=== PATIENT | male | born 1950 | race Caucasian/White ===

== ENCOUNTER 2016-10-23 05:38 | Inpatient (IN) | payer MEDICARE ==
[2016-10-23] VITALS (8 sets, daily range): BP systolic 111–177; BP diastolic 51–87; PULSE 61–88; RESP 18–20; TEMP 96.3–98.4; O2SAT 95–98
[~2016-10-23] VITALS: Ht 177.8 cm; Wt 96.0 kg
[~2016-10-23 05:38] MED LIST: ASPI81 PO; BIOT10004 PO; CYCL-36 PO; DESO0.0560 TOP; GABA300C3 PO; GLUC750T22 PO; HYDR-2768 PO; HYDR-3129 PO; LOSA50TA PO; LOVA40TA PO; METO50TA PO; MULT-65 PO; OMEP40CA2 PO; PERC5TAB12 PO; POTA-243 PO; TAMS0.4C67 PO; VITA20002 PO; VITA50TA10 PO
[2016-10-23] MEDS ORDERED: D200CAP PO (05:53)
[2016-10-23] MEDS ORDERED: BIOT1SUB SL (05:53)
[2016-10-23] MEDS ORDERED: ASPI1TAB69 PO (05:53)
[2016-10-23] MEDS ORDERED: VITA100021 SL (05:57)
[2016-10-23] MEDS ORDERED: GLUC750C PO (05:57)
[2016-10-23] MEDS ORDERED: GABA300C5 PO (05:57)
[2016-10-23] MEDS ORDERED: CYCL1TAB29 PO (05:57)
[2016-10-23] MEDS ORDERED: HYDR25TA5 PO (05:59)
[2016-10-23] MEDS ORDERED: LOSA50TA PO (05:59)
[2016-10-23] MEDS ORDERED: MORPHINE SULFATE 4 MG/ML INJ IV PUSH ONE ×2 (06:00→07:00)
[2016-10-23] MEDS ORDERED: SODIUM CHLORIDE 0.9% FLUSH 5 ML FLUSH IVF PRN (06:00)
[2016-10-23] MEDS ORDERED: NITROGLYCERIN 0.4 MG SL 25 TABS/BTL SL ONE (06:00)
[2016-10-23] MEDS ORDERED: ONDANSETRON HCL 4 MG/2 ML VIAL IV PUSH ONE (06:00)
[2016-10-23] MEDS ORDERED: SODIUM CHLORID 0.9% 500 ML INJ 500 ML IV ONE (06:00)
[2016-10-23] MEDS ORDERED: POTA10CA PO (06:02)
[2016-10-23] MEDS ORDERED: TAMS5CAP PO (06:02)
[2016-10-23] MEDS ORDERED: METO50TA PO (06:02)
[2016-10-23] MEDS ORDERED: PROT40TA PO (06:02)
[2016-10-23] MEDS ORDERED: LOVA40TA PO (06:02)
[2016-10-23 06:13] LABS: AUTOMATED NEUTROPHIL # 3.6 TH/MM3 (1.8-7.7); BASOPHIL % 0.7 % (0.0-2.0); EOSINOPHIL # 0.1 TH/MM3 (0-0.4); HEMATOCRIT 34.5 % (39.0-51.0); HEMO FLAGS DIFF FINAL; LYMPH % 32.9 % (9.0-44.0); LYMPHOCYTE # 2.1 TH/MM3 (1.0-4.8); MEAN CELL VOLUME 95.2 FL (80.0-100.0); MEAN CORPUSCULAR HEMOGLOBIN 32.6 PG (27.0-34.0); MEAN CORPUSCULAR HGB CONC 34.3 % (32.0-36.0); MONO % 8.4 % (0.0-8.0); PLATELET COUNT 177 TH/MM3 (150-450); RED BLOOD COUNT 3.62 MIL/MM3 (4.50-5.90); RED CELL DISTRIBUTION WIDTH 13.9 % (11.6-17.2); WHITE BLOOD COUNT 6.4 TH/MM3 (4.0-11.0)
--- NOTE | 2016-10-23 06:15 | PD ---
HPI Chief Complaint: Chest Pain Time Seen by Provider: 05:48 Travel History International Travel<30 days: No Contact w/Intl Traveler<30days: No Traveled to known affect area: No History of Present Illness HPI The patient is a 66-year-old male who presents to the emergency department for epigastric/chest pain. The patient states his symptoms started approximately 2 AM while he was sleeping. The patient states the pain awakened him. The pain is located in epigastrium and lower chest area, nonradiating, intermittent, and sharp. The patient states the pain will last for 15-20 minutes and then resolved. The patient states the pain is slightly improved with standing upright and leaning against a table and worse with lying supine. The patient does have a history of coronary artery disease with previous stent [place] [address] Jones. 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 Cyril Ingram. Patient does have a history of hypertension, hyperlipidemia, and coronary artery disease. He denies any current tobacco use or history of diabetes. The patient also has a history of Ingram's esophagus and hiatal hernia, but denies any known history of peptic ulcer disease or chronic gastritis. He denies any previous history of pancreatitis or biliary colic. The patient does complain of mild nausea associated with this chest pain as well as shortness of breath, but denies any vomiting or diaphoresis. PFSH Past Medical History Blood Disorders: No Heart Rhythm Problems: No Cancer: Yes (skin cancer basal,squamous) Cardiac Catheterization: Yes (stent) Cardiovascular Problems: Yes High Cholesterol: Yes Chemotherapy: No Congestive Heart Failure: No Diabetes: No Diminished Hearing: No Endocrine: No Gastrointestinal Disorders: Yes (ACID REFLUX/BARRETTS ESOPHAGUS) Glaucoma: No Genitourinary: Yes Hepatitis: No Hiatal Hernia: Yes Hypertension: Yes Immune Disorder: No Implanted Vascular Access Dvce: Yes Kidney Stones: Yes Medical other: Yes (arthritis,reflux,backproblems) Musculoskeletal: Yes (DEGENERATIVE DISEASE) Neurologic: Yes (BACK/NECK PAIN) Psychiatric: No Reproductive: No Respiratory: Yes (SOB) Immunizations Current: Yes Myocardial Infarction: Yes Radiation Therapy: No Thyroid Disease: No Tetanus Vaccination: < 5 Years Influenza Vaccination: Yes Past Surgical History Abdominal Aneurysm Repair: Yes (aortic bypass) Abdominal Surgery: No AICD: No Body Medical Devices: CARDIAC STENTS Cardiac Surgery: Yes (CARDIAC STENT; AORTIC BY-PASS ; ANGIOPLASTY) Coronary Artery Bypass Graft: Yes (aortic bypass) Coronary Stent: Yes Ear Surgery: No Endocrine Surgery: No Eye Surgery: No Genitourinary Surgery: Yes (KIDNEY STONE ) Gynecologic Surgery: No Joint Replacement: No Oral Surgery: Yes (t and a) Thoracic Surgery: No Tonsillectomy: Yes Other Surgery: Yes (skin cancer removed) Family History Family Myocardial Infarction: Yes Social History Alcohol Use: Yes Tobacco Use: No Substance Use: No Allergies-Medications (Allergen,Severity, Reaction): Coded Allergies: Duloxetine HCl (Verified Allergy, Severe, rash, diarrhea, 10/23/16) Reported Meds & Prescriptions Reported Meds & Active Scripts Active Reported Potassium Chloride ER (Potassium Chloride) 10 Meq Cap 10 Meq PO DAILY Flomax (Tamsulosin HCl) 0.4 Mg Cap 0.4 Mg PO HS Protonix (Pantoprazole Sodium) 40 Mg Tab 40 Mg PO DAILY Metoprolol Tartrate 50 Mg Tab 50 Mg PO BID Lovastatin 40 Mg Tab 40 Mg PO DAILY Losartan (Losartan Potassium) 50 Mg Tab 50 Mg PO DAILY Hydrochlorothiazide 25 Mg Tab 25 Mg PO BID Glucosamine (Glucosamine Sulfate) 750 Mg Cap 750 Mg PO DAILY Gabapentin 300 Mg Cap 300 Mg PO BID Flexeril (Cyclobenzaprine HCl) 10 Mg Tab 10 Mg PO TID Vitamin B-12 (Cyanocobalamin) 1,000 Mcg Subl 1,000 Mcg SL DAILY D2000 Ultra Strength (Cholecalciferol) 2,000 Unit Cap 2,000 Units PO DAILY Biotin 5,000 Mcg Subl 5,000 Mcg SL Aspirin 81 Mg Tabdr 81 Mg PO DAILY Review of Systems Except as stated in HPI: all other systems reviewed are Neg HENT: No: Lightheadedness Cardiovascular: Positive: Chest Pain or Discomfort Respiratory: Positive: Shortness of Breath Gastrointestinal: Positive: Nausea, Abdominal Pain, No: Vomiting Musculoskeletal: No: Weakness, Edema Neurologic: No: Dizziness Physical Exam Narrative GENERAL: Awake, alert, pleasant 66-year-old male who appears his stated age and is in no acute respiratory distress. SKIN: Warm and dry. HEAD: Atraumatic. Normocephalic. EYES: No injection or drainage. ENT: No nasal bleeding or discharge. Mucous membranes pink and moist. NECK: Trachea midline. No JVD. CARDIOVASCULAR: Regular rate and rhythm. No murmur appreciated. RESPIRATORY: No accessory muscle use. Clear to auscultation. Breath sounds equal bilaterally. GASTROINTESTINAL: Abdomen soft, palpation epigastrium minimally reproduces symptoms. Well-healed midline surgical scar. MUSCULOSKELETAL: No obvious deformities. No clubbing. No cyanosis. No edema. NEUROLOGICAL: Awake and alert. No obvious cranial nerve deficits. Motor grossly within normal limits. Normal speech. PSYCHIATRIC: Appropriate mood and affect; insight and judgment normal. Data Data Last Documented VS Vital Signs Date Time Temp Pulse Resp B/P Pulse Ox O2 Delivery O2 Flow Rate FiO2 10/23/16 06:17 20 10/23/16 06:03 98 Nasal Cannula 2 10/23/16 06:02 73 157/78 150/83 10/23/16 05:43 98.0 Orders Electrocardiogram (10/23/16 05:56) Ckmb (Isoenzyme) Profile (10/23/16 05:56) Complete Blood Count With Diff (10/23/16 05:56) Comprehensive Metabolic Panel (10/23/16 05:56) Magnesium (Mg) (10/23/16 05:56) Prothrombin Time / Inr (Pt) (10/23/16 05:56) Act Partial Throm Time (Ptt) (10/23/16 05:56) Troponin I (10/23/16 05:56) Lipase (10/23/16 05:56) Chest, Single Ap (10/23/16 05:56) Ecg Monitoring (10/23/16 05:56) Bilateral Bp Monitoring (10/23/16 05:56) Iv Access Insert/Monitor (10/23/16 05:56) Oximetry (10/23/16 05:56) Oxygen Administration (10/23/16 05:56) Morphine Inj (Morphine Inj) (10/23/16 06:00) Sodium Chloride 0.9% Flush (Ns Flush) (10/23/16 06:00) Nitroglycerin Sl (Nitrostat Sl) (10/23/16 06:00) Sodium Chlorid 0.9% 500 Ml Inj (Ns 500 M (10/23/16 06:00) Ondansetron Inj (Zofran Inj) (10/23/16 06:00) CKMB (10/23/16 06:05) CKMB% (10/23/16 06:05) Us Abdomen Gallbladder (10/23/16 ) Morphine Inj (Morphine Inj) (10/23/16 07:00) Admit Order (Ed Use Only) (10/23/16 06:52) Labs Laboratory Tests Test 10/23/16 06:05 White Blood Count 6.4 TH/MM3 Red Blood Count 3.62 MIL/MM3 Hemoglobin 11.8 GM/DL Hematocrit 34.5 % Mean Corpuscular Volume 95.2 FL Mean Corpuscular Hemoglobin 32.6 PG Mean Corpuscular Hemoglobin 34.3 % Concent Red Cell Distribution Width 13.9 % Platelet Count 177 TH/MM3 Mean Platelet Volume 7.9 FL Neutrophils (%) (Auto) 57.0 % Lymphocytes (%) (Auto) 32.9 % Monocytes (%) (Auto) 8.4 % Eosinophils (%) (Auto) 1.0 % Basophils (%) (Auto) 0.7 % Neutrophils # (Auto) 3.6 TH/MM3 Lymphocytes # (Auto) 2.1 TH/MM3 Monocytes # (Auto) 0.5 TH/MM3 Eosinophils # (Auto) 0.1 TH/MM3 Basophils # (Auto) 0.0 TH/MM3 CBC Comment DIFF FINAL Differential Comment Prothrombin Time 10.9 SEC Prothromb Time International 1.0 RATIO Ratio Activated Partial 25.6 SEC Thromboplast Time Sodium Level 139 MEQ/L Potassium Level 4.0 MEQ/L Chloride Level 101 MEQ/L Carbon Dioxide Level 28.1 MEQ/L Anion Gap 10 MEQ/L Blood Urea Nitrogen 28 MG/DL Creatinine 2.24 MG/DL Random Glucose 102 MG/DL Calcium Level 9.0 MG/DL Magnesium Level 1.4 MG/DL Total Bilirubin 0.3 MG/DL Aspartate Amino Transf 13 U/L (AST/SGOT) Alanine Aminotransferase 19 U/L (ALT/SGPT) Alkaline Phosphatase 88 U/L Total Creatine Kinase 307 U/L Creatine Kinase MB 2.8 NG/ML Troponin I LESS THAN 0.02 NG/ML Total Protein 7.4 GM/DL Albumin 3.6 GM/DL Lipase 6228 U/L [facility] Medical Decision Making Medical Screen Exam Complete: Yes Emergency Medical Condition: Yes Medical Record Reviewed: Yes Interpretation(s) EKG reveals normal sinus rhythm with a rate of 75. RSR prime in V1 with QRS of 131 ms consistent with right bundle branch block. Appears new compared to EKG performed on September 03, 2014. Laboratory Tests Test 10/23/16 06:05 White Blood Count 6.4 TH/MM3 Red Blood Count 3.62 MIL/MM3 Hemoglobin 11.8 GM/DL Hematocrit 34.5 % Mean Corpuscular Volume 95.2 FL Mean Corpuscular Hemoglobin 32.6 PG Mean Corpuscular Hemoglobin 34.3 % Concent Red Cell Distribution Width 13.9 % Platelet Count 177 TH/MM3 Mean Platelet Volume 7.9 FL Neutrophils (%) (Auto) 57.0 % Lymphocytes (%) (Auto) 32.9 % Monocytes (%) (Auto) 8.4 % Eosinophils (%) (Auto) 1.0 % Basophils (%) (Auto) 0.7 % Neutrophils # (Auto) 3.6 TH/MM3 Lymphocytes # (Auto) 2.1 TH/MM3 Monocytes # (Auto) 0.5 TH/MM3 Eosinophils # (Auto) 0.1 TH/MM3 Basophils # (Auto) 0.0 TH/MM3 CBC Comment DIFF FINAL Differential Comment Prothrombin Time 10.9 SEC Prothromb Time International 1.0 RATIO Ratio Activated Partial 25.6 SEC Thromboplast Time Sodium Level 139 MEQ/L Potassium Level 4.0 MEQ/L Chloride Level 101 MEQ/L Carbon Dioxide Level 28.1 MEQ/L Anion Gap 10 MEQ/L Blood Urea Nitrogen 28 MG/DL Creatinine 2.24 MG/DL Random Glucose 102 MG/DL Calcium Level 9.0 MG/DL Magnesium Level 1.4 MG/DL Total Bilirubin 0.3 MG/DL Aspartate Amino Transf 13 U/L (AST/SGOT) Alanine Aminotransferase 19 U/L (ALT/SGPT) Alkaline Phosphatase 88 U/L Total Creatine Kinase 307 U/L Troponin I LESS THAN 0.02 NG/ML Total Protein 7.4 GM/DL Albumin 3.6 GM/DL Lipase 6228 U/L Differential Diagnosis Differential diagnosis includes acute coronary syndrome, gastritis, peptic ulcer disease, pancreatitis, biliary colic, esophageal spasm. Narrative Course IV was established, labs were drawn and sent, and the patient was placed on cardiac telemetry monitoring and continuous pulse oximetry monitoring. EKG was ordered and interpreted. Chest x-ray was ordered. The patient took 2 full size aspirin prior to arrival. The patient was administered nitroglycerin sublingual, morphine, Zofran, and IV fluids. The patient's troponin is less than 0.02. Chest x-ray reveals no acute disease. The patient's lipase was elevated at 6228. The patient denies any known history of gallstones, but does have approximately 2 drinks per night. The patient's pain was reassessed at 6: 45 AM, was down to 5/10, therefore, the patient was redosed with morphine intravenously. The patient has acute pancreatitis, ultrasound of the gallbladder will be ordered to evaluate for choledocholithiasis, however, his elevated lipase/pancreatitis may be secondary to alcohol use. Patient has for health care, therefore, the on-call [facility] physician was paged for admission. Physician Communication Physician Communication The on-call [facility] physician was paged for admission. I discussed the patient with Dr. Pina who agrees with admission. Diagnosis Primary Impression: Pancreatitis Qualified Code: K85.90 - Acute pancreatitis, unspecified complication status, unspecified pancreatitis type Admitting Information Admitting Physician Requests: Admit Condition: Stable Gonzalo Stephenson MD Oct 23, 2016 06:15
[2016-10-23 06:25] LABS: APTT (PATIENT) 25.6 SEC (24.3-30.1); PROTHROMBIN TIME - PATIENT 10.9 SEC (9.8-11.6)
--- NOTE | 2016-10-23 06:36 | RADRPT ---
EXAM DATE/TIME: 10/23/2016 06:28 [facility] COMPARISON: CHEST SINGLE AP, September 03, 2014, 14:01. INDICATIONS : Chest pain. MEDICAL HISTORY : None. SURGICAL HISTORY : Aortic bypass. Cardiac stent. ENCOUNTER: Initial ACUITY: 1 day PAIN SCORE: 9/10 LOCATION: chest FINDINGS: A single view of the chest demonstrates the lungs to be symmetrically aerated without evidence of mas s, infiltrate or effusion. The cardiomediastinal contours are unremarkable. Osseous structures are intact. CONCLUSION: No acute disease. Jose Caldwell MD on October 23, 2016 at 6:34 Board Certified Radiologist. This report was verified electronically.
[2016-10-23 06:38] LABS: ALT (GPT) 19 U/L (12-78); ANION GAP 10 MEQ/L (5-15); AST (GOT) 13 U/L (15-37); BICARBONATE 28.1 MEQ/L (21.0-32.0); BLOOD UREA NITROGEN 28 MG/DL (7-18); CHLORIDE 101 MEQ/L (98-107); MAGNESIUM 1.4 MG/DL (1.5-2.5); SODIUM (NA) 139 MEQ/L (136-145)
[2016-10-23 06:41] LABS: ALKALINE PHOSPHATASE 88 U/L (45-117); CREATINE KINASE 307 U/L (39-308); TOTAL BILIRUBIN ADULT 0.3 MG/DL (0.2-1.0)
[2016-10-23 06:54] LABS: CKMB 2.8 NG/ML (0.5-3.6)
[2016-10-23] MEDS ORDERED: MORPHINE SULFATE 4 MG/ML INJ IV PUSH PRN (07:45)
[2016-10-23] MEDS: SODIUM CHLOR 0.9% 1000 ML INJ 1,000 ML IV SCH ×3 (07:45→19:30)
[2016-10-23] MEDS ORDERED: ONDANSETRON HCL 4 MG/2 ML VIAL IV PRN (08:45)
[2016-10-23] MEDS ORDERED: ACETAMINOPHEN 325 MG TAB PO PRN (08:45)
--- NOTE | 2016-10-23 09:07 | HHI.HP ---
HPI Service [facility] Hospitalists Primary Care Physician Theodore Manzano MD Admission Diagnosis acute pancreatitis Travel History International Travel<30 Days: No Contact w/Intl Traveler <30 Da: No Traveled to Known Affected Are: No History of Present Illness Mr. Castro is a 66 y/o WM with HTN, hyperlipidemia, hx of CAD/[place] and regular alcohol use. He presented to the ED at [facility] on 10/23/16 with complaints of sudden onset of epigastric/lower sternal chest pain that began at approximately 2AM which awakened him for sleep. The pain is located in epigastrium/lower sternal chest area, nonradiating, constant, and sharp. It lasted about 3 hours and resolved after arrival to the ER and was given Morphine. He states the pain was slightly improved with standing upright and leaning against a table and worse with lying supine. The patient reported some mild nausea associated with this pain as well as shortness of breath, but denies any vomiting or diaphoresis. Labs at admission noted an elevated Lipase of 6228. His LFTs are stable. Abd US is pending. Pt admits to drinking 2-3 alcoholic beverages every evening. He denies an hx of gallstones or liver issues. He denies any recent illnesses or medication changes. He denies any previous history of pancreatitis. Review of Systems Constitutional: DENIES: Fever, Chills Respiratory: DENIES: Cough, Shortness of breath Cardiovascular: COMPLAINS OF: Chest pain, DENIES: Palpitations, Dyspnea on Exertion, Lower Extremity Edema Gastrointestinal: COMPLAINS OF: Abdominal pain, Nausea, DENIES: Vomiting Past Family Social History Past Medical History CAD with hx of [place] Hx of TIA PVD Chronic back pain B12 deficiency HTN Hyperlipidemia CKD stage 3 Ingram's esophagus Past Surgical History PTCA with stent placement x 2 in 2004 Lithotripsy Tonsillectomy Reported Medications Potassium Chloride ER (Potassium Chloride) 10 Meq Cap 10 Meq PO DAILY Flomax (Tamsulosin HCl) 0.4 Mg Cap 0.4 Mg PO HS Protonix (Pantoprazole Sodium) 40 Mg Tab 40 Mg PO DAILY Metoprolol Tartrate 50 Mg Tab 50 Mg PO BID Lovastatin 40 Mg Tab 80 Mg PO DAILY Losartan (Losartan Potassium) 50 Mg Tab 100 Mg PO DAILY Hydrochlorothiazide 25 Mg Tab 25 Mg PO DAILY Glucosamine (Glucosamine Sulfate) 750 Mg Cap 750 Mg PO DAILY Gabapentin 300 Mg Cap 300 Mg PO BID Flexeril (Cyclobenzaprine HCl) 10 Mg Tab 10 Mg PO TID Vitamin B-12 (Cyanocobalamin) 1,000 Mcg Subl 1,000 Mcg SL DAILY D2000 Ultra Strength (Cholecalciferol) 2,000 Unit Cap 2,000 Units PO DAILY Biotin 5,000 Mcg Subl 5,000 Mcg SL Aspirin 81 Mg Tabdr 81 Mg PO DAILY Allergies: Coded Allergies: Duloxetine HCl (Verified Allergy, Severe, rash, diarrhea, 10/23/16) Family History Mother with hx of breast cancer Father with hx of HTN Social History (+)Alcohol use, 2 drinks per night Hx of tobacco use, 1ppd x 30 years, quit in 2003 Denies any illicit drug use Physical Exam Vital Signs Vital Signs Date Time Temp Pulse Resp B/P Pulse Ox O2 Delivery O2 Flow Rate FiO2 10/23/16 06:17 20 10/23/16 06:17 20 10/23/16 06:04 20 10/23/16 06:03 98 Nasal Cannula 2 10/23/16 06:02 73 20 157/78 98 Room Air 150/83 10/23/16 05:43 98.0 75 20 177/87 98 10/23/16 05:40 98.4 88 18 175/83 95 Room Air Physical Exam GENERAL: This is a well-nourished, well-developed patient, in no apparent distress. HEENT: Atraumatic. Normocephalic. No temporal or scalp tenderness. No scleral icterus. Airway patent. NECK: Trachea midline, supple, nontender. CARDIO: Regular. RESP: CTA bilaterally. No wheezes, rales, or rhonchi. ABD: +BS, soft, non-tender, nondistended. EXT: Extremities without clubbing, cyanosis, or edema. NEURO: Awake and alert. Motor and sensory grossly within normal limits. Normal speech. Laboratory Laboratory Tests Test 10/23/16 06:05 White Blood Count 6.4 Red Blood Count 3.62 Hemoglobin 11.8 Hematocrit 34.5 Mean Corpuscular Volume 95.2 Mean Corpuscular Hemoglobin 32.6 Mean Corpuscular Hemoglobin 34.3 Concent Red Cell Distribution Width 13.9 Platelet Count 177 Mean Platelet Volume 7.9 Neutrophils (%) (Auto) 57.0 Lymphocytes (%) (Auto) 32.9 Monocytes (%) (Auto) 8.4 Eosinophils (%) (Auto) 1.0 Basophils (%) (Auto) 0.7 Neutrophils # (Auto) 3.6 Lymphocytes # (Auto) 2.1 Monocytes # (Auto) 0.5 Eosinophils # (Auto) 0.1 Basophils # (Auto) 0.0 CBC Comment DIFF FINAL Differential Comment Prothrombin Time 10.9 Prothromb Time International 1.0 Ratio Activated Partial 25.6 Thromboplast Time Sodium Level 139 Potassium Level 4.0 Chloride Level 101 Carbon Dioxide Level 28.1 Anion Gap 10 Blood Urea Nitrogen 28 Creatinine 2.24 Random Glucose 102 Calcium Level 9.0 Magnesium Level 1.4 Total Bilirubin 0.3 Aspartate Amino Transf 13 (AST/SGOT) Alanine Aminotransferase 19 (ALT/SGPT) Alkaline Phosphatase 88 Total Creatine Kinase 307 Creatine Kinase MB 2.8 Troponin I LESS THAN 0.02 Total Protein 7.4 Albumin 3.6 Lipase 6228 Result Diagram: 10/23/16 0605 10/23/16 0605 Imaging Last Impressions Chest X-Ray 10/23/16 0556 Signed Impressions: Service Date/Time: Sunday, October 23, 2016 06:28 - CONCLUSION: No acute disease. Jose Caldwell MD Septic Shock Reassessment Heart: Regular rate and rhythm Lungs: Clear Skin: Warm Peripheral Pulses: Bounding Right Radial Bounding Left Radial Bounding Right Popliteal Bounding Left Popliteal Bounding Right Dorsalis Pedis Bounding Left Dorsalis Pedis Bounding Right Posterior Tibial Bounding Left Posterior Tibial Capillary Refill: <2 seconds Assessment and Plan Problem List: (1) Pancreatitis Status: Acute Plan: - Pt admitted with acute onset of epigastric pain, nausea and some SOB - Lipase at admission was elevated at 6228. Likely alcoholic pancreatitis. Pt drinks 2-3 alcoholic beverages per day. - Abdominal US is pending. - LFTs are WNL - IVF - Pain control PRN - Check lipids - Withdrawal precautions. - Supportive care - DVT prophylaxis (2) Acute renal failure superimposed on stage 3 chronic kidney disease Status: Acute Plan: - Labs slightly worse than baseline. - Review of previous outpt labs noted Cr 1.48, BUN 19, and GFR 49 in 01/2016 - IVF - Monitor labs (3) Hypertension Status: Chronic Plan: - Cont. Metoprolol - Hold Losartan and HCTZ at this time. BP is low normal and renal function is increased. - IVF - Monitor vitals (4) Hyperlipidemia Status: Chronic Plan: - Cont. home meds - Check lipid panel (5) GERD (gastroesophageal reflux disease) Status: Chronic Plan: - Cont. PPI Assessment and Plan Patient examined. Assessment and plan formulated with Lyndsay Corea PA-C. I agree with the above. etoh pancreatitis. 2-3 vodka per day pt admits to tremors with no etoh. right kidney mass noted..pt says he was aware and follows with dr Camp. will give him copy of u/s on d/c to take back to urology. ckd 3 noted ivf. npo. pain meds. labs in AM. Physician Certification 2 Midnight Certification Type: Admission for Inpatient Services Order for Inpatient Services The services are ordered in accordance with Medicare regulations or non- Medicare payer requirements, as applicable. In the case of services not specified as inpatient-only, they are appropriately provided as inpatient services in accordance with the 2-midnight benchmark. Estimated LOS (days): 3 3 days is the estimated time the patient will need to remain in the hospital, assuming treatment plan goals are met and no additional complications. Post-Hospital Plan: Not yet determined Problem Qualifiers (1) Pancreatitis: Qualified Code: K85.90 - Acute pancreatitis, unspecified complication status, unspecified pancreatitis type Lyndsay Corea Oct 23, 2016 09:07 Bro Pina MD Oct 23, 2016 15:16
--- NOTE | 2016-10-23 09:23 | RADRPT ---
EXAM DATE/TIME: 10/23/2016 08:07 [facility] COMPARISON: CT ABDOMEN & PELVIS W/O CONTRAST, April 28, 2015, 13:06. INDICATIONS : Right upper quadrant pain. MEDICAL HISTORY : Myocardial infarction. Hypercholesterolemia. Gastroesophageal reflux disease. Transient ischemic clemente ck. Neck/back pain. Coronary artery disease. Peripheral vascular disease. Hyperlipidemia. Hypertensio n. Emphysema. Ingram's esophagus. hiatal hernia. renal cyst. renal calculi. skin cancer. measles. ar thritis. SURGICAL HISTORY : Abdominal aortic aneurysm repair. Tonsillectomy. CABG. Skin cancer removal. Coronary artery stent. ENCOUNTER: Initial ACUITY: 1 day PAIN SCORE: 3/10 LOCATION: Right upper quadrant MEASUREMENTS: LIVER: 14.8 cm length COMMON DUCT: 4 mm RIGHT KIDNEY: 9.0 x 5.2 x 5.0 cm FINDINGS: LIVER: Normal echotexture without focal lesion or ductal dilatation. The portal system is patent. There is a cyst in the right lobe measuring 3.0 cm. There is a cyst in the left lobe measuring 1.8 cm. No evide nce of ascites. COMMON DUCT: No intraluminal mass or stone visualized. GALLBLADDER: Contains no stones, demonstrates no wall thickening or pericholecystic fluid. PANCREAS: Not visualized RIGHT KIDNEY: No evidence of hydronephrosis. There appears to be a mass along the mid pole of the right kidney diony uring 3.2 x 2.8 cm. There is vascularity associated with the mass. CONCLUSION: 1. There is a solid vascular mass along the midpole the right kidney measuring 3.2 x 2.[address] Renal ce ll carcinoma is the primary consideration. Recommend a CT scan with IV contrast for further evaluatio n. This could be performed on a nonemergent outpatient basis. 2. Hepatic cysts. These were present on patient's prior CT scan. 3. No evidence of gallstones or biliary tract obstruction. 4. Pancreas not visualized. Nirmal Lund MD on October 23, 2016 at 9:17 Board Certified Radiologist. This report was verified electronically.
[2016-10-23] MEDS: PANTOPRAZOLE SOD 40 MG DELAYED RELEASE TAB PO SCH (09:45)
[2016-10-23] MEDS: ASPIRIN EC 81 MG TABEC PO SCH (09:45)
[2016-10-23] MEDS: METOPROLOL TARTRATE 50 MG TAB PO SCH ×2 (09:46→19:29)
[2016-10-23] MEDS: MORPHINE SULFATE 4 MG/ML INJ IV PUSH PRN ×2 (13:06→16:46)
[2016-10-23] MEDS ORDERED: LORazepam 2 MG/ML VIAL IV PUSH PRN (15:00)
[2016-10-23] MEDS: chlordiazePOXIDE 25 MG CAP PO SCH (16:40)
--- NOTE | 2016-10-23 16:57 | EKG ---
Date Performed: 10/23/2016 Time Performed: 05:48:32 PTAGE: 66 years EKG: Sinus rhythm RIGHT BUNDLE BRANCH BLOCK ABNORMAL ECG PREVIOUS TRACING : 09/03/2014 20.00.50 Compared to previous tracing, the patient has a new righ t bundle branch block. DOCTOR: Naila Owen Interpretating Date/Time 10/23/2016 16:56:00
[2016-10-23] MEDS: TAMSULOSIN HCL 0.4 MG CAP PO SCH (19:29)
[2016-10-23] MEDS ORDERED: PILL SPLITTER OTHER PRN (21:15)
[2016-10-23] MEDS: MELATONIN 5 MG TAB PO SCH (22:07)
[2016-10-24] VITALS: BP 116/66; PULSE 68; RESP 20; TEMP 98; O2SAT 97
[2016-10-24 04:52] LABS: AUTOMATED NEUTROPHIL # 2.8 TH/MM3 (1.8-7.7); BASOPHIL % 0.4 % (0.0-2.0); EOSINOPHIL # 0.1 TH/MM3 (0-0.4); EOSINOPHIL % 1.1 % (0.0-4.0); HEMATOCRIT 29.3 % (39.0-51.0); HEMO FLAGS DIFF FINAL; LYMPH % 28.3 % (9.0-44.0); LYMPHOCYTE # 1.3 TH/MM3 (1.0-4.8); MEAN CELL VOLUME 96.1 FL (80.0-100.0); MEAN CORPUSCULAR HEMOGLOBIN 33.1 PG (27.0-34.0); MEAN CORPUSCULAR HGB CONC 34.4 % (32.0-36.0); MONO % 9.2 % (0.0-8.0); PLATELET COUNT 139 TH/MM3 (150-450); RED BLOOD COUNT 3.05 MIL/MM3 (4.50-5.90); RED CELL DISTRIBUTION WIDTH 14.1 % (11.6-17.2); WHITE BLOOD COUNT 4.6 TH/MM3 (4.0-11.0)
[2016-10-24 05:24] LABS: ALKALINE PHOSPHATASE 74 U/L (45-117); ALT (GPT) 14 U/L (12-78); ANION GAP 10 MEQ/L (5-15); AST (GOT) 9 U/L (15-37); BICARBONATE 27.2 MEQ/L (21.0-32.0); BLOOD UREA NITROGEN 22 MG/DL (7-18); CHLORIDE 105 MEQ/L (98-107); GLOMERULAR FILTRATION RATE 45 ML/MIN (>89); SODIUM (NA) 142 MEQ/L (136-145); TOTAL BILIRUBIN ADULT 0.4 MG/DL (0.2-1.0)
[2016-10-24] MEDS: PANTOPRAZOLE SOD 40 MG DELAYED RELEASE TAB PO SCH (07:53)
[2016-10-24] MEDS: ASPIRIN EC 81 MG TABEC PO SCH (07:53)
[2016-10-24] MEDS: chlordiazePOXIDE 25 MG CAP PO SCH ×3 (07:53→18:03)
[2016-10-24] MEDS: SODIUM CHLOR 0.9% 1000 ML INJ 1,000 ML IV SCH ×3 (07:54→19:24)
[2016-10-24] MEDS: METOPROLOL TARTRATE 50 MG TAB PO SCH ×2 (07:54→19:24)
[2016-10-24 08:00] VITALS: BP 112/65; PULSE 79; RESP 18; TEMP 97.6; O2SAT 100
--- NOTE | 2016-10-24 10:35 | HHI.PR ---
Subjective Remarks abdomen pain better. no vomiting. Objective Vitals heart reg lung cta abd s/nt ext no edema Vital Signs Date Time Temp Pulse Resp B/P Pulse Ox O2 Delivery O2 Flow Rate FiO2 10/24/16 08:00 97.6 79 18 112/65 100 10/24/16 00:00 98.0 68 20 116/66 97 10/23/16 20:00 97.8 71 20 111/51 98 10/23/16 15:47 96.3 61 18 154/74 98 10/23/16 12:31 98.4 61 20 116/65 98 Nasal Cannula 2 10/23/16 12:20 18 10/23/16 10/23/16 10/24/16 15:00 23:00 07:00 Intake Total 1052 ml 1284 ml Output Total 550 ml 500 ml Balance 502 ml 784 ml Intake Oral 0 ml 0 ml IV Total 1052 ml 1284 ml Output Urine Total 550 ml 500 ml # Voids 3 # Bowel Movements 0 0 Result Diagram: 10/24/16 0430 10/24/16 0430 Imaging Last Impressions Chest X-Ray 10/23/16 0556 Signed Impressions: Service Date/Time: Sunday, October 23, 2016 06:28 - CONCLUSION: No acute disease. Jose Caldwell MD A/P Problem List: (1) Pancreatitis Status: Acute Plan: - Pt admitted with acute onset of epigastric pain, nausea and some SOB - Lipase at admission was elevated at 6228. felt to be etoh related pancreatitis He drinks 2 - 3 vodka drinks daily. also on hctz He has etoh dependence and admits to shaking/tremors without it etoh w/d precaution. librium. he is willing to see etoh counselor at [facility]. will call them on Wednesday to contact pt. try to d/c hctz ivf today. advance diet and if tolerating then d/c home. discussed the right kidney lesion with pt/..he thinks it's being followed by dr Camp but I will give him a copy of the report to take back to his Urologist. (2) Acute renal failure superimposed on stage 3 chronic kidney disease Status: Acute Plan: - improving back to baseline with ivf (3) Hypertension Status: Chronic Plan: - Cont. Metoprolol - Hold Losartan and HCTZ at this time. BP is low normal and renal function is increased. - IVF - Monitor vitals (4) Hyperlipidemia Status: Chronic Plan: - Cont. home meds - Check lipid panel (5) GERD (gastroesophageal reflux disease) Status: Chronic Plan: - Cont. PPI Problem Qualifiers (1) Pancreatitis: Qualified Code: K85.90 - Acute pancreatitis, unspecified complication status, unspecified pancreatitis type Bro Pina MD Oct 24, 2016 10:35
[2016-10-24 12:00] VITALS: BP 131/70; PULSE 73; RESP 16; TEMP 96; O2SAT 98
[2016-10-24 16:00] VITALS: BP_SYST 153; BP_SYST 160; BP_DIAS 68; BP_DIAS 73; PULSE 77; RESP 18; TEMP 97.3; O2SAT 98
[2016-10-24] MEDS: TAMSULOSIN HCL 0.4 MG CAP PO SCH (19:24)
[2016-10-24] MEDS: MELATONIN 5 MG TAB PO SCH (19:24)
[2016-10-24 20:00] VITALS: BP 134/67; PULSE 86; RESP 19; TEMP 97.3; O2SAT 96
[2016-10-25 00:02] VITALS: BP 106/58; PULSE 70; RESP 19; TEMP 96.8; O2SAT 98
[2016-10-25] MEDS: SODIUM CHLOR 0.9% 1000 ML INJ 1,000 ML IV SCH (05:29)
[2016-10-25 08:00] VITALS: BP 125/85; PULSE 75; RESP 20; TEMP 97.6; O2SAT 98
[2016-10-25] MEDS: METOPROLOL TARTRATE 50 MG TAB PO SCH ×2 (08:00→20:35)
[2016-10-25] MEDS: chlordiazePOXIDE 25 MG CAP PO SCH ×3 (08:00→18:08)
[2016-10-25] MEDS: ASPIRIN EC 81 MG TABEC PO SCH (08:00)
[2016-10-25] MEDS: PANTOPRAZOLE SOD 40 MG DELAYED RELEASE TAB PO SCH (08:00)
--- NOTE | 2016-10-25 11:40 | HHI.PR ---
Subjective Remarks some abdomen bloating and discomfort after eating Objective Vitals heart reg lung cta abd s/nt ext no edema Vital Signs Date Time Temp Pulse Resp B/P Pulse Ox O2 Delivery O2 Flow Rate FiO2 10/25/16 08:00 97.6 75 20 125/85 98 10/25/16 00:02 96.8 70 19 106/58 98 10/24/16 20:00 97.3 86 19 134/67 96 10/24/16 16:00 97.3 77 18 160/68 98 153/73 10/24/16 12:00 96.0 73 16 131/70 98 10/24/16 10/24/16 10/25/16 15:00 23:00 07:00 Intake Total 1376 ml 806 ml 1128 ml Output Total 950 ml 300 ml Balance 426 ml 806 ml 828 ml Intake Oral 480 ml 240 ml 120 ml IV Total 896 ml 566 ml 1008 ml Output Urine Total 950 ml 300 ml # Voids 2 # Bowel Movements 0 0 0 Result Diagram: 10/24/16 0430 10/24/16 0430 Imaging Last Impressions Chest X-Ray 10/23/16 0556 Signed Impressions: Service Date/Time: Sunday, October 23, 2016 06:28 - CONCLUSION: No acute disease. Jose Caldwell MD A/P Problem List: (1) Pancreatitis Status: Acute Plan: - Pt admitted with acute onset of epigastric pain, nausea and some SOB - Lipase at admission was elevated at 6228. felt to be etoh related pancreatitis He drinks 2 - 3 vodka drinks daily. also on hctz He has etoh dependence and admits to shaking/tremors without it etoh w/d precaution. librium. he is willing to see etoh counselor at [facility]. will call them on Wednesday to contact pt. try to d/c hctz had some abdomen discomfort with advancement of diet but patient ignored instruction to advance slowly and at large meals discussed the right kidney lesion with pt/..he thinks it's being followed by dr Camp but I will give him a copy of the report to take back to his Urologist. (2) Acute renal failure superimposed on stage 3 chronic kidney disease Status: Acute Plan: - improving back to baseline with ivf (3) Hypertension Status: Chronic Plan: - Cont. Metoprolol - Hold Losartan and HCTZ at this time. BP is low normal and renal function is increased. - IVF - Monitor vitals (4) Hyperlipidemia Status: Chronic Plan: - Cont. home meds - Check lipid panel (5) GERD (gastroesophageal reflux disease) Status: Chronic Plan: - Cont. PPI Problem Qualifiers (1) Pancreatitis: Qualified Code: K85.90 - Acute pancreatitis, unspecified complication status, unspecified pancreatitis type Bro Pina MD Oct 25, 2016 11:40
[2016-10-25 12:00] VITALS: BP 144/65; PULSE 68; RESP 18; TEMP 96.8; O2SAT 96
[2016-10-25] MEDS: SIMETHICONE 125 MG CHEWABLE TAB PO SCH ×2 (14:07→20:42)
[2016-10-25 16:00] VITALS: BP 136/66; PULSE 68; RESP 16; TEMP 96.4; O2SAT 97
[2016-10-25] MEDS ORDERED: LORA-392 PO ×2 (17:51→18:02)
--- NOTE | 2016-10-25 17:59 | HHI.DCPOC ---
Discharge Care Plan Diagnosis: (1) Pancreatitis Goals to Promote Your Health * To prevent worsening of your condition and complications * To maintain your health at the optimal level Directions to Meet Your Goals Take your medications as prescribed Follow your dietary instruction Follow activity as directed Keep your appointments as scheduled Take your immunizations and boosters as scheduled If your symptoms worsen call your PCP, if no PCP go to Urgent Care Center or Emergency Room Smoking is Dangerous to Your Health. Avoid second hand smoke Call the 24-hour hour crisis hotline for domestic abuse at Bro Pina MD Oct 25, 2016 17:58
[2016-10-25 20:00] VITALS: BP 150/76; PULSE 70; RESP 21; TEMP 96.9; O2SAT 95
[2016-10-25] MEDS: TAMSULOSIN HCL 0.4 MG CAP PO SCH (20:35)
[2016-10-25] MEDS: MELATONIN 5 MG TAB PO SCH (20:36)
[2016-10-26] MEDS: SIMETHICONE 125 MG CHEWABLE TAB PO SCH (06:00)
[2016-10-26 08:00] VITALS: BP 152/80; PULSE 65; RESP 20; TEMP 96.9; O2SAT 98
[2016-10-26] MEDS ORDERED: LORazepam 1 MG TAB PO SCH (09:00)
[2016-10-26] MEDS: ASPIRIN EC 81 MG TABEC PO SCH (09:00)
[2016-10-26] MEDS: PANTOPRAZOLE SOD 40 MG DELAYED RELEASE TAB PO SCH (09:00)
[2016-10-26] MEDS: METOPROLOL TARTRATE 50 MG TAB PO SCH (09:00)
--- NOTE | 2016-11-26 20:43 | HHI.DS ---
Discharge Summary Admission Date Oct 23, 2016 at 06:54 Discharge Date: Oct 26, 2016 Admitting Diagnosis acute pancreatitis (1) Pancreatitis Diagnosis: Principal (2) Acute renal failure superimposed on stage 3 chronic kidney disease Diagnosis: Principal (3) Hypertension Diagnosis: Secondary (4) Hyperlipidemia Diagnosis: Secondary (5) GERD (gastroesophageal reflux disease) Diagnosis: Secondary Brief History Mr. Castro is a 66 y/o WM with HTN, hyperlipidemia, hx of CAD/MN and regular alcohol use. He presented to the ED at [facility] on 10/23/16 with complaints of sudden onset of epigastric/lower sternal chest pain that began at approximately 2AM which awakened him for sleep. The pain is located in epigastrium/lower sternal chest area, nonradiating, constant, and sharp. It lasted about 3 hours and resolved after arrival to the ER and was given Morphine. He states the pain was slightly improved with standing upright and leaning against a table and worse with lying supine. The patient reported some mild nausea associated with this pain as well as shortness of breath, but denies any vomiting or diaphoresis. Labs at admission noted an elevated Lipase of 6228. His LFTs are stable. Abd US is pending. Pt admits to drinking 2-3 alcoholic beverages every evening. He denies an hx of gallstones or liver issues. He denies any recent illnesses or medication changes. He denies any previous history of pancreatitis. Hospital Course - Pt admitted with acute onset of epigastric pain, nausea and some SOB - Lipase at admission was elevated at 6228. felt to be etoh related pancreatitis He drinks 2 - 3 vodka drinks daily. also on hctz He has etoh dependence and admits to shaking/tremors without it --etoh w/d precaution. librium. he is willing to see etoh counselor at [facility]. will call them on Wednesday to contact pt. --try to d/c hctz --had some abdomen discomfort with advancement of diet but patient ignored instruction to advance slowly and at large meals --discussed the right kidney lesion with pt/..he thinks it's being followed by dr Camp but I will give him a copy of the report to take back to his Urologist. ( Pt Condition on Discharge: Stable Discharge Disposition: Discharge Home Discharge Instructions DIET: Follow Instructions for: Soft Diet Additional Diet Instructions: mostly liquids over next 2 days then soft/low fat diet. Activities you can perform: Regular-No Restrictions Follow up Referrals: Behavioral Services - 1 Week @ [facility] P[facility] Follow-up - 1 Week with bjorn dennis New Medications: Lorazepam (Ativan) 0.5 Mg Tab 0.5 MG PO DIRECTED 1mg po bid x 2 days, 0.5mg po bid x 3 days then 0.5mg po daily x 5 days Agitation Days 10 Ref 0 TAB Continued Medications: Aspirin (Aspirin) 81 Mg Tabdr 81 MG PO DAILY TAB Biotin (Biotin) 5,000 Mcg Subl 5000 MCG SL Nutritional Supplement #1 Ref 0 BOTTLE Cholecalciferol (D2000 Ultra Strength) 2,000 Unit Cap 2000 UNITS PO DAILY Nutritional Supplement #30 Ref 0 CAP Cyanocobalamin (Vitamin B-12) 1,000 Mcg Subl 1000 MCG SL DAILY Nutritional Supplement Ref 0 TAB.SL Cyclobenzaprine (Flexeril) 10 Mg Tab 10 MG PO TID Muscle Spasm #90 Ref 0 TAB Gabapentin (Gabapentin) 300 Mg Cap 300 MG PO BID #60 Ref 0 CAP Glucosamine (Glucosamine) 750 Mg Cap 750 MG PO DAILY Herbal Supplements Ref 0 CAP Losartan (Losartan) 50 Mg Tab 100 MG PO DAILY Blood Pressure Management #30 Ref 0 TAB Lovastatin (Lovastatin) 40 Mg Tab 80 MG PO DAILY Cholesterol Management #30 Ref 0 TAB Metoprolol Tartrate (Metoprolol Tartrate) 50 Mg Tab 50 MG PO BID #60 Ref 0 TAB Pantoprazole (Protonix) 40 Mg Tab 40 MG PO DAILY Reflux #30 Ref 0 TAB Tamsulosin (Flomax) 0.4 Mg Cap 0.4 MG PO HS Manage Prostate Problems #30 Ref 0 CAP Discontinued Medications: Hydrochlorothiazide (Hydrochlorothiazide) 25 Mg Tab 25 MG PO DAILY #30 TAB Potassium Chloride ER (Potassium Chloride ER) 10 Meq Cap 10 MEQ PO DAILY Electrolyte Replacement #30 Ref 0 CAP Bro Pina MD Nov 26, 2016 20:43
== END 2016-10-26 10:27 | disposition home or self-care (01) | DRG 439 ==
LOC: NEPC 05:38 → NEDA 06:54 → N07A 13:03
PROVIDERS: ADMIT Hospitalist; ATTEND Hospitalist
DX: K85.20 Alcohol induced acute pancreatitis without necrosis or infection (principal); N17.9 Acute kidney failure, unspecified; E53.8 Deficiency of other specified B group vitamins; K22.70 Barrett's esophagus without dysplasia; N18.3 Chronic kidney disease, stage 3 (moderate); I25.10 Atherosclerotic heart disease of native coronary artery without angina pectoris; E78.5 Hyperlipidemia, unspecified; I12.9 Hypertensive chronic kidney disease with stage 1 through stage 4 chronic kidney disease, or unspecified chronic kidney disease; F10.20 Alcohol dependence, uncomplicated; Z95.5 Presence of coronary angioplasty implant and graft; Z87.891 Personal history of nicotine dependence
CPT/HCPCS: 71010; 76705; 80053; 80061; 82550; 82552; 83690; 83735; 84484; 85025; 85610; 85730; 93005; 96361; 96374; 96375; J2270; J2405; J7030; J7040